=== PATIENT | female | born 1955 | race Caucasian/White ===

== ENCOUNTER → 2017-06-10 | Outpatient (CLI) | payer BC ==
[~2017-06-10] VITALS: Ht 170.2 cm; Wt 139.5 kg
[~2017-06-10] MED LIST: AMBIEN CR12.5 MG PO; BIOTIN1000 MICRO PO; Ecotrin PO; LEVOTHYROXINE50 MCG PO; Levothroid,Synthroid PO; MOBIC15 MG PO; NITROSTAT0.4 MG SL; Nitrostat,NitroQuick SL; ONCE DAILY1 EACH PO; PERCOCET 5/31 TABLET PO; Percocet 5/325,Endoc PO; SYNTHROID50 MCG PO; ULTRAM50 MG PO; ZANAFLEX4 M1 PO
== END | disposition home or self-care (01) ==
LOC: AMB 09:22
PROC: 0DJ08ZZ Inspection of Upper Intestinal Tract, Via Natural or Artificial Opening Endoscopic (ICD-10-PCS; principal; 2017-06-10)
DX: K21.9 Gastro-esophageal reflux disease without esophagitis (principal); K44.9 Diaphragmatic hernia without obstruction or gangrene; K31.7 Polyp of stomach and duodenum; E66.01 Morbid (severe) obesity due to excess calories; Z68.42 Body mass index [BMI] 45.0-49.9, adult; E03.9 Hypothyroidism, unspecified; M19.90 Unspecified osteoarthritis, unspecified site